=== PATIENT | male | born 1985 | race Caucasian/White ===

== ENCOUNTER 2016-07-22 17:57 | Emergency (ER) | payer OTHER ==
[~2016-07-22] VITALS: Ht 180.3 cm; Wt 80.0 kg
[2016-07-22 17:59] VITALS: BP 114/82; PULSE 87; RESP 16; TEMP 98.1; O2SAT 99
[2016-07-22] MEDS ORDERED: SODIUM CHLOR 0.9% 1000 ML INJ 1,000 ML IV SCH (18:27)
[2016-07-22] MEDS ORDERED: SODIUM CHLORIDE 0.9% FLUSH 10 ML FLUSH IV FLUSH PRN (18:30)
[2016-07-22] MEDS ORDERED: FAMOTIDINE 20 MG/2 ML VIAL IV PUSH ONE (18:30)
--- NOTE | 2016-07-22 18:31 | PD ---
HPI Chief Complaint: Abdominal Pain Time Seen by Provider: 18:27 Travel History International Travel<30 days: No Contact w/Intl Traveler<30days: No Traveled to known affect area: No History of Present Illness HPI 31-year-old male with history of high cholesterol, presents to the ER today with epigastric abdominal pain that he states feels a bloating starting while he was going in a car with his boss several hours ago. He denies any nausea, vomiting, diarrhea, chest pains, shortness of breath, or any other symptoms. He states the pain is currently a 6 out of 10. He does not know any exacerbating or alleviating factors. He does not know any sick contacts. Modifying Factors: None Associated Signs & Symptoms: Epigastric abdominal pain Risk Factors: None PFSH Past Medical History Medical History: Denies Significant Hx Hx Anticoagulant Therapy: No Diabetes: No Diminished Hearing: No Immunizations Current: Yes Influenza Vaccination: Yes ?: Not Past Surgical History Surgical History: No Previous Surgery Social History Alcohol Use: Yes Tobacco Use: No (quit 3 years ago, smoked for 8 years total) Substance Use: No Allergies-Medications (Allergen,Severity, Reaction): Coded Allergies: No Known Allergies (Unverified , 07/22/16) Reported Meds & Prescriptions Reported Meds & Active Scripts Active No Active Prescriptions or Reported Medications Review of Systems Except as stated in HPI: all other systems reviewed are Neg Physical Exam Narrative GENERAL: Well-developed young white male patient currently in mild distress. Awake and oriented 3. SKIN: Focused skin assessment warm/dry. HEAD: Atraumatic. Normocephalic. EYES: Pupils equal and round. No scleral icterus. No injection or drainage. ENT: No nasal bleeding or discharge. Mucous membranes pink and moist. NECK: Trachea midline. No JVD. CARDIOVASCULAR: Regular rate and rhythm. No murmur appreciated. RESPIRATORY: No accessory muscle use. Clear to auscultation. Breath sounds equal bilaterally. GASTROINTESTINAL: Abdomen soft, mild epigastric tenderness without guarding or rebound, nondistended. Hepatic and splenic margins not palpable. MUSCULOSKELETAL: No obvious deformities. No clubbing. No cyanosis. No edema. NEUROLOGICAL: Awake and alert. No obvious cranial nerve deficits. Motor grossly within normal limits. Normal speech. PSYCHIATRIC: Appropriate mood and affect; insight and judgment normal. Data Data Last Documented VS Vital Signs Date Time Temp Pulse Resp B/P Pulse Ox O2 Delivery O2 Flow Rate FiO2 07/22/16 17:59 98.1 87 16 114/82 99 Orders Complete Blood Count With Diff (07/22/16 18:) Comprehensive Metabolic Panel (07/22/16:) Lipase (07/22/16 18:27) Iv Access Insert/Monitor (07/22/16 18:) Ecg Monitoring (07/22/16) Oximetry (07/22/16:) Sodium Chlor 0.9% 1000 Ml Inj (Ns 1000 M (07/22/16) Sodium Chloride 0.9% Flush (Ns Flush) (07/22/16 18:30) Electrocardiogram (07/22/16:) Chest, Single Ap (07/22/16:) Famotidine Inj (Pepcid Inj) (07/22/16 18:30) Ckmb (Isoenzyme) Profile (07/22/16) Troponin I (07/22/16:) Labs Laboratory Tests Test 07/22/16 18:40 White Blood Count 8.0 TH/MM3 Red Blood Count 4.49 MIL/MM3 Hemoglobin 13.5 GM/DL Hematocrit 39.8 % Mean Corpuscular Volume 88.6 FL Mean Corpuscular Hemoglobin 30.0 PG Mean Corpuscular Hemoglobin 33.9 % Concent Red Cell Distribution Width 13.8 % Platelet Count 224 TH/MM3 Mean Platelet Volume 8.1 FL Neutrophils (%) (Auto) 63.8 % Lymphocytes (%) (Auto) 23.5 % Monocytes (%) (Auto) 7.5 % Eosinophils (%) (Auto) 3.1 % Basophils (%) (Auto) 2.1 % Neutrophils # (Auto) 5.1 TH/MM3 Lymphocytes # (Auto) 1.9 TH/MM3 Monocytes # (Auto) 0.6 TH/MM3 Eosinophils # (Auto) 0.2 TH/MM3 Basophils # (Auto) 0.2 TH/MM3 CBC Comment DIFF FINAL Differential Comment MDM Medical Decision Making Medical Screen Exam Complete: Yes Emergency Medical Condition: Yes Medical Record Reviewed: Yes Interpretation(s) EKG shows NSR, no ST elevation or depression, and no arrhythmias. No significant T-wave inversions. Laboratory Tests Test 07/22/16 18:40 Red Blood Count 4.49 MIL/MM3 (4.50-5.90) Basophils (%) (Auto) 2.1 % (0.0-2.0) Differential Diagnosis Epigastric abdominal painsgastritis versus gastroenteritis versus dysrhythmias versus ACS Narrative Course Pepcid in the ER. IV fluids were ordered. EKG initially did not show any signs of dysrhythmias or ST changes. Physician Communication Physician Communication Case is signed out at [address] Hill awaiting workup. Diagnosis Primary Impression: Abdominal pain Scripts No Active Prescriptions or Reported Meds Condition: Stable Silvano Ewing MD Jul 22, 2016 18:31
[2016-07-22 18:58] LABS: AUTOMATED NEUTROPHIL # 5.1 TH/MM3 (1.8-7.7); BASOPHIL # 0.2 TH/MM3 (0-0.2); BASOPHIL % 2.1 % (0.0-2.0); EOSINOPHIL # 0.2 TH/MM3 (0-0.4); EOSINOPHIL % 3.1 % (0.0-4.0); HEMATOCRIT 39.8 % (39.0-51.0); HEMO FLAGS DIFF FINAL; LYMPH % 23.5 % (9.0-44.0); LYMPHOCYTE # 1.9 TH/MM3 (1.0-4.8); MEAN CELL VOLUME 88.6 FL (80.0-100.0); MEAN CORPUSCULAR HGB CONC 33.9 % (32.0-36.0); MONO % 7.5 % (0.0-8.0); NEUT % 63.8 % (16.0-70.0); PLATELET COUNT 224 TH/MM3 (150-450); RED BLOOD COUNT 4.49 MIL/MM3 (4.50-5.90); RED CELL DISTRIBUTION WIDTH 13.8 % (11.6-17.2)
[2016-07-22 19:08] LABS: CHLORIDE 106 MEQ/L (98-107); POTASSIUM 3.6 MEQ/L (3.5-5.1); SODIUM (NA) 140 MEQ/L (136-145)
[2016-07-22 19:13] LABS: ANION GAP 6 MEQ/L (5-15); BICARBONATE 27.8 MEQ/L (21.0-32.0); BLOOD UREA NITROGEN 9 MG/DL (7-18)
[2016-07-22 19:16] LABS: ALT (GPT) 52 U/L (12-78); AST (GOT) 43 U/L (15-37); GLOMERULAR FILTRATION RATE 88 ML/MIN (>89)
[2016-07-22 19:17] LABS: TOTAL BILIRUBIN ADULT 0.5 MG/DL (0.2-1.0)
[2016-07-22 19:18] LABS: ALKALINE PHOSPHATASE 79 U/L (45-117); CREATINE KINASE 206 U/L (39-308)
[2016-07-22 19:20] VITALS: BP 119/65; PULSE 76; RESP 20; O2SAT 99
[2016-07-22 19:31] LABS: CKMB 1.1 NG/ML (0.5-3.6)
[2016-07-22] MEDS ORDERED: ZANT150T2 PO (19:47)
--- NOTE | 2016-07-22 19:47 | PD ---
Physical Exam Narrative Patient signed out to me by Dr. Ewing to follow up testing and disposition the patient. Please see her documentation for complete details. Briefly, patient is a 31-year-old male with no medical history other than recently diagnosed high cholesterol, who comes in complaining of epigastric pain. He says he has had the pain about 3 or 4 times today. Each event has lasted a few seconds. He says the pain is right in the middle of his stomach. It does not radiate. It does not seem to be related to food intake. He does report history of smoking as well as eating a lot of spicy foods. He is not having any pain in his chest or any shortness of breath. He has not had any nausea or vomiting. He has not had any fever or chills. Exam shows tenderness to the epigastric area. Data Data Last Documented VS Vital Signs Date Time Temp Pulse Resp B/P Pulse Ox O2 Delivery O2 Flow Rate FiO2 07/22/16 19:20 20 07/22/16 19:20 76 119/65 99 07/22/16 17:59 98.1 Orders Complete Blood Count With Diff (07/22/16 18:27) Comprehensive Metabolic Panel (07/22/16 18:27) Lipase (07/22/16 18:27) Iv Access Insert/Monitor (07/22/16 18:27) Ecg Monitoring (07/22/16 18:27) Oximetry (07/22/16 18:27) Sodium Chlor 0.9% 1000 Ml Inj (Ns 1000 M (07/22/16 18:27) Sodium Chloride 0.9% Flush (Ns Flush) (07/22/16 18:30) Electrocardiogram (07/22/16 18:27) Chest, Single Ap (07/22/16 18:27) Famotidine Inj (Pepcid Inj) (07/22/16 18:30) Ckmb (Isoenzyme) Profile (07/22/16 18:27) Troponin I (07/22/16 18:27) CKMB (07/22/16 18:40) CKMB% (07/22/16 18:40) Labs Laboratory Tests Test 07/22/16 18:40 White Blood Count 8.0 TH/MM3 Red Blood Count 4.49 MIL/MM3 Hemoglobin 13.5 GM/DL Hematocrit 39.8 % Mean Corpuscular Volume 88.6 FL Mean Corpuscular Hemoglobin 30.0 PG Mean Corpuscular Hemoglobin 33.9 % Concent Red Cell Distribution Width 13.8 % Platelet Count 224 TH/MM3 Mean Platelet Volume 8.1 FL Neutrophils (%) (Auto) 63.8 % Lymphocytes (%) (Auto) 23.5 % Monocytes (%) (Auto) 7.5 % Eosinophils (%) (Auto) 3.1 % Basophils (%) (Auto) 2.1 % Neutrophils # (Auto) 5.1 TH/MM3 Lymphocytes # (Auto) 1.9 TH/MM3 Monocytes # (Auto) 0.6 TH/MM3 Eosinophils # (Auto) 0.2 TH/MM3 Basophils # (Auto) 0.2 TH/MM3 CBC Comment DIFF FINAL Differential Comment Sodium Level 140 MEQ/L Potassium Level 3.6 MEQ/L Chloride Level 106 MEQ/L Carbon Dioxide Level 27.8 MEQ/L Anion Gap 6 MEQ/L Blood Urea Nitrogen 9 MG/DL Creatinine 1.00 MG/DL Estimat Glomerular Filtration 88 ML/MIN Rate Random Glucose 80 MG/DL Calcium Level 9.1 MG/DL Total Bilirubin 0.5 MG/DL Aspartate Amino Transf 43 U/L (AST/SGOT) Alanine Aminotransferase 52 U/L (ALT/SGPT) Alkaline Phosphatase 79 U/L Total Creatine Kinase 206 U/L Creatine Kinase MB 1.1 NG/ML Troponin I LESS THAN 0.02 NG/ML Total Protein 7.7 GM/DL Albumin 4.0 GM/DL Lipase 127 U/L [facility] Supervised Visit with KEKE: No Narrative Course Patient had an ECG done that shows no abnormalities, no signs of ischemia. Labs show no acute abnormalities. Troponin is negative. Lipase is negative. Chest x-ray shows mild right basilar opacity. Patient says he has an occasional cough. He denies fever or chills. I discussed with the patient was his results. I explained we cannot be 100% sure his pain is not related to his heart, though his presentation suggests abdominal origin versus heart issues. He does have a strong family history of early cardiac issues. I offered the patient admission for further workup, however he declines at this time. He'll be discharged with a prescription for Zantac and azithromycin.. Advised to quit smoking. Advised to refrain from any sort of drug use. Advised to avoid spicy foods, tomatoes, peppers, caffeine. Advised to follow-up with his primary care doctor. Advised to return to the ED as needed for any worsening symptoms. Diagnosis Primary Impression: Abdominal pain Qualified Code: R10.13 - Epigastric pain Additional Impression: Pneumonia Qualified Code: J18.1 - Pneumonia of right lower lobe due to infectious organism Patient Instructions: Gastroesophageal Reflux Disease (ED), General Instructions Additional Instruction: Follow-up with your primary care doctor. Avoid spicy foods. Quit smoking. Return to the ED as needed for any worsening symptoms. Scripts Azithromycin (Zithromax Z-Choco)250 Mg [id number] Mg PO DIRECTED #1 DSPK Ref 0 500 MG (2 tabs) day 1, then 1 tab days 2-5. Prov:Corina Hill MD 07/22/16 Ranitidine (Zantac)150 Mg Adr754 Mg PO BID #60 TAB Ref 0 Prov:Corina Hill MD 07/22/16 Disposition: 01 DISCHARGE HOME Condition: Stable Corina Hill MD Jul 22, 2016 19:47
--- NOTE | 2016-07-22 19:56 | RADHPO ---
EXAM DATE/TIME: 07/22/2016 19:24 [facility] COMPARISON: CHEST SINGLE AP, November 04, 2015, 12:27. INDICATIONS : Patient states right breast pain started this morning. MEDICAL HISTORY : None. SURGICAL HISTORY : None. ENCOUNTER: Initial ACUITY: 1 day PAIN SCORE: 8/10 LOCATION: Right Breast. FINDINGS: There is slight parenchymal opacity at the right base which may be mild bronchitic changes. Left lung is clear. No effusion is present. Cardiac contours are satisfactory. CONCLUSION: Mild right base infiltrate. Jaspreet Gamez MD on July 22, 2016 at 19:53 Board Certified Radiologist. This report was verified electronically.
[2016-07-22] MEDS ORDERED: ZITHTAB PO (20:05)
[2016-07-22 20:56] VITALS: BP 117/76
--- NOTE | 2016-07-23 17:45 | EKG ---
Date Performed: 07/22/2016 Time Performed: 18:28:44 PTAGE: 31 years EKG: Sinus rhythm Normal ECG PREVIOUS TRACING : 08/29/2015 20.06 Compared to prior tracing no significant change DOCTOR: Amaya Peña Interpretating Date/Time 07/23/2016 17:44:40
== END 2016-07-22 20:59 | disposition home or self-care (01) ==
LOC: PHED 17:57
DX: R10.13 Epigastric pain (principal); J18.9 Pneumonia, unspecified organism
CPT/HCPCS: 71010; 80053; 82550; 82552; 83690; 84484; 85025; 93005; 96374; 99285; J7030

== ENCOUNTER 2016-10-11 15:47 | Emergency (ER) | payer MEDICAID, OTHER ==
[~2016-10-11] VITALS: Ht 177.8 cm; Wt 76.0 kg
[~2016-10-11 15:47] MED LIST: ZANT150T2 PO; ZITHTAB PO
[2016-10-11 15:54] VITALS: BP 148/77; PULSE 75; RESP 16; TEMP 98.4; O2SAT 98
[2016-10-11] MEDS ORDERED: SUDO4TAB PO (16:04)
[2016-10-11] MEDS ORDERED: PENI250T PO (16:09)
--- NOTE | 2016-10-11 16:11 | PD ---
HPI Chief Complaint: Oral / Dental Pain or Problem Time Seen by Provider: 16:05 Travel History International Travel<30 days: No Contact w/Intl Traveler<30days: No Traveled to known affect area: No History of Present Illness HPI 31-year-old male presents to the emergency department for evaluation of dental pain 4 days. Patient denies fever or chills. He reports he has 2 molar tooth fractures caused by eating peanuts one month ago. Symptoms severity is mild. Aggravated by heat, cold, chewing. No alleviating factors. Pain is described as throbbing, constant, nonradiating severity 4/10. PFSH Past Medical History Medical History: Denies Significant Hx Hx Anticoagulant Therapy: No Diabetes: No Diminished Hearing: No Immunizations Current: Yes Social History Alcohol Use: Yes Tobacco Use: Yes (1/2 - 1 PPD) Substance Use: No Allergies-Medications (Allergen,Severity, Reaction): Coded Allergies: No Known Allergies (Unverified , 07/22/16) Reported Meds & Prescriptions Reported Meds & Active Scripts Active Penicillin V Potassium 250 Mg Tab 250 Mg PO Q6H 28 Days Reported Sudogest Sinus & Allergy (Chlorpheniramine-Pseudoephedrine) 4-60 Mg Tab 1 Tab PO Q4H PRN Review of Systems Except as stated in HPI: all other systems reviewed are Neg Physical Exam Narrative GENERAL: Well-nourished, well-developed patient. SKIN: Focused skin assessment warm/dry. HEAD: Normocephalic. EYES: No scleral icterus. No injection or drainage. MOUTH: Mucous membranes moist, no lesions, tongue and gums appear normal. Wide spread dental decay. Tooth #31 and #2 decayed and fractured with surrounding gum erythema. NECK: Supple, trachea midline. No JVD or lymphadenopathy. CARDIOVASCULAR: Regular rate and rhythm without murmurs, gallops, or rubs. RESPIRATORY: Breath sounds equal bilaterally. No accessory muscle use. GASTROINTESTINAL: Abdomen soft, non-tender, nondistended. MUSCULOSKELETAL: No cyanosis, or edema. BACK: Nontender without obvious deformity. No CVA tenderness. Data Data Last Documented VS Vital Signs Date Time Temp Pulse Resp B/P (MAP) Pulse Ox O2 Delivery O2 Flow Rate FiO2 10/11/16 15:54 98.4 75 16 148/77 (100) 98 MDM Medical Decision Making Medical Screen Exam Complete: Yes Emergency Medical Condition: Yes Differential Diagnosis Dental fracture, dental abscess, periodontal disease Narrative Course 31-year-old male presents to the emergency department for evaluation of dental pain 4 days. Patient denies fever or chills. He reports he has 2 molar tooth fractures caused by eating peanuts one month ago. On exam patient has widespread dental decay. Tooth #31 and 2 are fractured with surrounding erythema. Diagnosis Primary Impression: Pain, dental Departure Forms: Tests/Procedures, Work Release Enter return to work date: Oct 12, 2016 Additional Instructions: Take the antibiotics as prescribed. Take [id number] Motrin 600-800 milligrams by mouth every 6-8 hours as needed for pain. Keep your Appointment with your dentist. Scripts Penicillin V Potassium (Penicillin V Potassium) 250 Mg Tab 250 MG PO Q6H for Infection for 28 Days, TAB 0 Refills Prov: Minerva Tirado 10/11/16 Disposition: 01 DISCHARGE HOME Condition: Stable Minerva Tirado Oct 11, 2016 16:11
== END 2016-10-11 16:26 | disposition home or self-care (01) ==
LOC: PHEFT 15:47
DX: K08.89 Other specified disorders of teeth and supporting structures (principal); F17.200 Nicotine dependence, unspecified, uncomplicated
CPT/HCPCS: 99283

== ENCOUNTER 2016-11-21 10:13 | Emergency (ER) | payer MEDICAID ==
[~2016-11-21] VITALS: Ht 177.8 cm; Wt 77.0 kg
[~2016-11-21 10:13] MED LIST changes: +PENI250T PO; +SUDO4TAB PO; -ZANT150T2 PO; -ZITHTAB PO
[2016-11-21 10:22] VITALS: BP 134/78; PULSE 86; RESP 18; TEMP 97.6; O2SAT 99
[2016-11-21] MEDS ORDERED: PROPARACAINE HCL 0.5% OPHT SOLN 15 ML BTL LEFT EYE ONE (10:30)
--- NOTE | 2016-11-21 10:32 | PD ---
HPI Chief Complaint: Eye Problems/Injury Time Seen by Provider: 10:29 Travel History International Travel<30 days: No Contact w/Intl Traveler<30days: No Traveled to known affect area: No History of Present Illness HPI patient awoke with left eye discomfort and photophobia this morning. Had concerns of a dog hair. Denies any exposure to metal or sand denies any yardwork. Denies any vision loss. Denies matting. PFSH Past Medical History Hx Anticoagulant Therapy: No Diabetes: No Diminished Hearing: No Immunizations Current: Yes Social History Alcohol Use: Yes Tobacco Use: Yes (2 - 1 PPD) Substance Use: No Allergies-Medications (Allergen,Severity, Reaction): Coded Allergies: No Known Allergies (Unverified , 11/21/16) Reported Meds & Prescriptions Reported Meds & Active Scripts Active No Active Prescriptions or Reported Medications Review of Systems General / Constitutional: No: Fever Eyes: Positive: Drainage, Redness, Foreign Body Sensation, Pain, Tearing, No: Visual changes HENT: No: Headaches Cardiovascular: No: Chest Pain or Discomfort Respiratory: No: Shortness of Breath Gastrointestinal: No: Abdominal Pain Genitourinary: No: Dysuria Musculoskeletal: No: Pain Skin: No Rash Neurologic: No: Weakness Psychiatric: No: Depression Endocrine: No: Polydipsia Hematologic/Lymphatic: No: Easy Bruising Physical Exam Narrative GENERAL: Well-nourished, well-developed patient. SKIN: Focused skin assessment warm/dry. HEAD: Normocephalic. EYES: No scleral icterus. Left eye erythema, no sign of corneal abrasion by fluoroscopy NECK: Supple, trachea midline. No JVD or lymphadenopathy. CARDIOVASCULAR: Regular rate and rhythm without murmurs, gallops, or rubs. RESPIRATORY: Breath sounds equal bilaterally. No accessory muscle use. GASTROINTESTINAL: Abdomen soft, non-tender, nondistended. MUSCULOSKELETAL: No cyanosis, or edema. BACK: Nontender without obvious deformity. No CVA tenderness. Data Data Last Documented VS Vital Signs Date Time Temp Pulse Resp B/P (MAP) Pulse Ox O2 Delivery O2 Flow Rate FiO2 11/21/16 10:22 97.6 86 18 134/78 (96) 99 Orders Orders Proparacaine 0.5% Opth Soln (Alcaine 0.5 (11/21/16 10:30) MDM Medical Decision Making Medical Screen Exam Complete: Yes Emergency Medical Condition: Yes Differential Diagnosis Corneal abrasion, foreign body, conjunctivitis Narrative Course Assessment and plan discussed with patient at bedside. Diagnosis Primary Impression: Conjunctivitis Qualified Codes: H10.32 - Unspecified acute conjunctivitis, left eye Additional Instructions: Rest fluids and Motrin, follow-up with PCP, return with any onset of new symptoms, encouraged frequent handwashing Med/Other Pt SpecificInfo: Prescription(s) given Scripts Polymyxin B-Trimethoprim Opth Drops (Polytrim Opth Drops) 10,000-0.1 Unit/Ml-% Soln 1 DROP LEFT EYE Q4HR for Mgmt Bacterial Infection for 7 Days, #1 BOTTLE 0 Refills Prov: Joe Saravia MD 11/21/16 Disposition: 01 DISCHARGE HOME Condition: Good Joe Saravia MD Nov 21, 2016 10:32
[2016-11-21] MEDS ORDERED: POLY10O LEFT EYE (10:50)
== END 2016-11-21 10:58 | disposition home or self-care (01) ==
LOC: PHEFT 10:13
DX: H10.32 Unspecified acute conjunctivitis, left eye (principal); F17.200 Nicotine dependence, unspecified, uncomplicated
CPT/HCPCS: 99283

== ENCOUNTER 2017-02-20 07:23 | Emergency (ER) | payer MEDICAID ==
[~2017-02-20] VITALS: Ht 177.8 cm; Wt 75.0 kg
[~2017-02-20 07:23] MED LIST changes: -PENI250T PO; +POLY10O LEFT EYE; -SUDO4TAB PO
[2017-02-20 07:34] VITALS: BP 135/75; PULSE 84; RESP 16; TEMP 98.1; O2SAT 100
[2017-02-20] MEDS ORDERED: ASPIRIN 325 MG/CAFFEINE 40 MG/BUTALBITAL 50 MG CAP PO ONE (08:00)
[2017-02-20] MEDS ORDERED: ACETAMIN 325 MG/BUTALBITAL 50 MG/CAFFEINE 40 MG TAB PO ONE ×2 (08:00→09:15)
[2017-02-20] MEDS ORDERED: SUMAtriptan INJ 6 MG/0.5 ML VIAL SQ ONE ×2 (08:00→09:15)
--- NOTE | 2017-02-20 08:01 | PD ---
HPI Chief Complaint: Headache Time Seen by Provider: 07:53 Travel History International Travel<30 days: No Contact w/Intl Traveler<30days: No Traveled to known affect area: No History of Present Illness HPI Patient presents with complaints of migraine. States she's been getting migraines for approximately one month. States they become more frequent as of late. This last migraine was lasted 3 days. 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 Right sided parietal pain with photophobia. Denies nausea and vomiting. Denies aura. Taking fluids well. Previously taking ibuprofen with little relief with this episode. PFSH Past Medical History Hx Anticoagulant Therapy: No Diabetes: No Diminished Hearing: No Immunizations Current: Yes Social History Alcohol Use: Yes Tobacco Use: Yes (12 - 1 PPD) Substance Use: No Allergies-Medications (Allergen,Severity, Reaction): Coded Allergies: No Known Allergies (Unverified Allergy, Unknown, 02/20/17) Reported Meds & Prescriptions Reported Meds & Active Scripts Active No Active Prescriptions or Reported Medications Review of Systems General / Constitutional: No: Fever Eyes: No: Visual changes HENT: Positive: Headaches Cardiovascular: No: Chest Pain or Discomfort Respiratory: No: Shortness of Breath Gastrointestinal: No: Abdominal Pain Genitourinary: No: Dysuria Musculoskeletal: No: Pain Skin: No Rash Neurologic: No: Weakness Psychiatric: No: Depression Endocrine: No: Polydipsia Hematologic/Lymphatic: No: Easy Bruising Physical Exam Narrative GENERAL: Well-nourished, well-developed patient. SKIN: Focused skin assessment warm/dry. HEAD: Normocephalic. EYES: No scleral icterus. No injection or drainage. NECK: Supple, trachea midline. No JVD or lymphadenopathy. CARDIOVASCULAR: Regular rate and rhythm without murmurs, gallops, or rubs. RESPIRATORY: Breath sounds equal bilaterally. No accessory muscle use. GASTROINTESTINAL: Abdomen soft, non-tender, nondistended. MUSCULOSKELETAL: No cyanosis, or edema. BACK: Nontender without obvious deformity. No CVA tenderness. Data Data Last Documented VS Vital Signs Date Time Temp Pulse Resp B/P (MAP) Pulse Ox O2 Delivery O2 Flow Rate FiO2 02/20/17 07:34 98.1 84 16 135/75 (95) 100 Orders Orders Sumatriptan Inj (Imitrex Inj) (02/20/17 08:00) Maux-Elduv-Aiek 325-50-40 Mg (Fioricet 3 (02/20/17 08:00) Sumatriptan Inj (Imitrex Inj) (02/20/17 09:15) Byje-Vzchy-Pkpt 325-50-40 Mg (Fioricet 3 (02/20/17 09:15) MDM Medical Decision Making Medical Screen Exam Complete: Yes Emergency Medical Condition: Yes Differential Diagnosis Tension headache, cluster headache, migraine Narrative Course Assessment and plan discussed with patient at bedside. Patient received Fioricet and Imitrex with resolution of his headache. Diagnosis Primary Impression: Migraines Qualified Codes: G43.009 - Migraine without aura, not intractable, without status migrainosus Additional Instructions: Rest and fluids. Follow-up with PCP for further control of migraines. Return to emergency with any onset of new migraines. Med/Other Pt SpecificInfo: Prescription(s) given Scripts Ovvfjkolio-Mmfybuxvzpqdz-Jdupxxza (Fioricet) 50-300-40 Mg Cap 1 CAP PO Q4H Y for HEADACHE, #30 CAP 0 Refills Prov: Joe Saravia MD 02/20/17 Disposition: 01 DISCHARGE HOME Condition: Good Joe Saravia MD Feb 20, 2017 08:00
[2017-02-20] MEDS ORDERED: BUTA1CAP PO (10:12)
== END 2017-02-20 10:50 | disposition home or self-care (01) ==
LOC: PHED 07:23
DX: G43.009 Migraine without aura, not intractable, without status migrainosus (principal); F17.210 Nicotine dependence, cigarettes, uncomplicated
CPT/HCPCS: 96372; 99284; J3030